=== PATIENT | female | born 1975 | race Two or more races ===

== ENCOUNTER 2018-06-22 21:35 | Emergency (ER) | payer MEDICAID ==
[~2018-06-22] VITALS: Ht 154.9 cm; Wt 84.9 kg
[~2018-06-22 21:35] MED LIST: PREN1TAB49
[2018-06-22 21:37] VITALS: Ht 154.9 cm; Wt 84.9 kg
[2018-06-23] MEDS ORDERED: NAPR-985 PO (01:30)
[2018-06-23 01:47] VITALS: BP 103/65; PULSE 85; RESP 19
--- NOTE | 2018-06-27 23:12 | ERD ---
ER Documentation Chief Complaint Chief Complaint midsternal non radiating chest pain x30 mins. HPI 42-year-old female with mid sternal nonradiating chest pain for the past 30 minutes. She got an argument. She said she is under a lot of stress lately. Pain is mild to moderate intensity no exacerbating factors. No fevers no chill s. She did have some perioral numbness and tingling along with tingling in bilateral fingertips when she did have the argument. No other current complaints. ROS All systems reviewed and are negative except as per history of present illness. Medications Home Meds Active Scripts Naproxen* (Naprosyn*) 500 Mg Tablet, 500 MG PO BID PRN for PAIN AND/OR INFLAMMATION, #30 TAB Prov:DAMI AYALA 06/23/18 Reported Medications Vits W-Ca,Fe,Fa(<1MG) () 1 Tab Tablet 12/18/09 Allergies Allergies: Coded Allergies: No Known Allergy (Verified Allergy, Unknown, 12/18/09) PMhx/Soc Medical and Surgical Hx: pt denies Medical Hx, pt denies Surgical Hx Hx Alcohol Use: No Hx Substance Use: No Hx Tobacco Use: No Smoking Status: Never smoker Physical Exam Physical Exam Const: No acute distress Head: Atraumatic Eyes: Normal Conjunctiva ENT: Normal External Ears, Nose and Mouth. Neck: Full range of motion. No meningismus. Resp: Clear to auscultation bilaterally Cardio: Regular rate and rhythm, no murmurs Abd: Soft, non tender, non distended. Normal bowel sounds Skin: No petechiae or rashes Back: No midline or flank tenderness Ext: No cyanosis, or edema Neur: Awake and alert Psych: Normal Mood and Affect Result Diagram: 06/22/18 2347 06/22/18 2347 Results 24 hrs Laboratory Tests Test 06/22/18 23:47 White Blood Count 7.7 10^3/ul Red Blood Count 4.76 10^6/ul Hemoglobin 11.2 g/dl Hematocrit 36.3 % Mean Corpuscular Volume 76.3 fl Mean Corpuscular Hemoglobin 23.5 pg Mean Corpuscular Hemoglobin Concent 30.9 g/dl Red Cell Distribution Width 14.4 % Platelet Count 271 10^3/UL Mean Platelet Volume 11.1 fl Immature Granulocytes % 0.400 % Neutrophils % 59.6 % Lymphocytes % 30.5 % Monocytes % 7.1 % Eosinophils % 1.9 % Basophils % 0.5 % Nucleated Red Blood Cells % 0.0 /100WBC Immature Granulocytes # 0.030 10^3/ul Neutrophils # 4.6 10^3/ul Lymphocytes # 2.4 10^3/ul Monocytes # 0.6 10^3/ul Eosinophils # 0.2 10^3/ul Basophils # 0.0 10^3/ul Nucleated Red Blood Cells # 0.0 10^3/ul Sodium Level 139 mmol/L Potassium Level 4.0 mmol/L Chloride Level 101 mmol/L Carbon Dioxide Level 26 mmol/L Anion Gap 12 Blood Urea Nitrogen 10 mg/dl Creatinine 0.43 mg/dl Est Glomerular Filtrat Rate mL/min > 60 mL/min Glucose Level 313 mg/dl Calcium Level 9.1 mg/dl Troponin I < 0.012 ng/ml Procedures/MDM EKG: Rate/Rhythm: [Normal Sinus Rhythm] QRS, ST, T-waves: [No changes consistent w/ acute ischemia] Impression: [No evidence of ischemia or arrhythmia] Chest X-ray 1V Interpreted by me: Soft Tissue: No acute abnormalities Bones: No acute abnormalities Mediastinum/Cardiac Silhouette/Lungs: [No acute abnormalities] Patient's thoracic symptoms have stabilized while in the department and are stable for outpatient follow up. Exam and work up not consistent w/ ischemia, arrhythmia, PE or dissection. Departure Diagnosis: Primary Impression: Chest pain of uncertain etiology Condition: Stable Patient Instructions: Chest Pain, Uncertain Cause DAMI AYALA Jun 27, 2018 23:12
== END 2018-06-23 01:47 | disposition home or self-care (01) ==
LOC: E/R 21:35
DX: R07.9 Chest pain, unspecified (principal)
CPT/HCPCS: 36415; 71045; 80048; 84484; 85025; 93005